=== PATIENT | female | born 1945 | race Caucasian/White ===

== ENCOUNTER 2018-07-11 16:17 | Emergency (ER) | payer OTHER ==
[~2018-07-11] VITALS: Ht 149.9 cm; Wt 38.2 kg
[2018-07-11 16:31] VITALS: Ht 149.9 cm; Wt 38.2 kg
[2018-07-11 19:37] VITALS: BP 151/91
== END 2018-07-11 19:37 | disposition home or self-care (01) ==
LOC: ED 16:17
DX: M71.21 Synovial cyst of popliteal space [Baker], right knee (principal); M25.561 Pain in right knee; I10 Essential (primary) hypertension; F17.210 Nicotine dependence, cigarettes, uncomplicated; Z90.710 Acquired absence of both cervix and uterus
CPT/HCPCS: J1885; Q0092

== ENCOUNTER 2019-05-10 19:19 | Inpatient (IN) | payer OTHER ==
[~2019-05-10] VITALS: Ht 149.9 cm; Wt 37.5 kg
[2019-05-10 21:27] LABS: ALKALINE PHOSPHATASE 216 U/L (46-116); ALT/SGPT 28 U/L (14-59); AST/SGOT 211 U/L (15-37); BILIRUBIN TOTAL 0.7 mg/dL (0.20-1.00); CALCIUM 8.4 mg/dL (8.5-10.1); CARBON DIOXIDE 24.2 mmol/L (21-32); CHLORIDE SERUM 105 mmol/L (98-107); CREATININE SERUM 0.9 mg/dL (0.6-1.0); GLUCOSE SERUM 97 mg/dL (74-106); POTASSIUM SERUM 4.6 mmol/L (3.5-5.1); SODIUM SERUM 141 mmol/L (136-145)
[2019-05-10 21:28] LABS: BASOPHIL % 0.3 % (0-2); PLATELET COUNT 229 x10^3mcL (130-400)
[2019-05-10 21:30] LABS: ALBUMIN 2.9 g/dL (3.4-5.0); TOTAL PROTEIN, SERUM 5.6 g/dL (6.4-8.2)
[2019-05-10 21:34] LABS: RED CELL DISTRIBUTION WIDTH 15.8 % (11.5-14.5)
[2019-05-11] VITALS (7 sets, daily range): BP systolic 84–110; BP diastolic 48–61
[2019-05-11] MEDS ORDERED: TOPROL XL25 MG PO (00:26)
[2019-05-11] MEDS ORDERED: EDARBYCLOR1 TA1 PO (00:26)
[2019-05-11 05:09] LABS: BASOPHIL % 0.4 % (0-2); PLATELET COUNT 176 x10^3mcL (130-400)
[2019-05-11 05:13] LABS: RED CELL DISTRIBUTION WIDTH 15.3 % (11.5-14.5)
[2019-05-11 06:26] LABS: CALCIUM 7.9 mg/dL (8.5-10.1); CARBON DIOXIDE 21.5 mmol/L (21-32); CHLORIDE SERUM 109 mmol/L (98-107); CREATININE SERUM 0.7 mg/dL (0.6-1.0); GLUCOSE SERUM 106 mg/dL (74-106); MAGNESIUM 2.2 mg/dL (1.8-2.4); PHOSPHOROUS 4.8 mg/dL (2.5-4.9); POTASSIUM SERUM 4.4 mmol/L (3.5-5.1); SODIUM SERUM 141 mmol/L (136-145)
[2019-05-12 03:02] VITALS: BP 99/53
[2019-05-12 05:40] LABS: BASOPHIL % 0.2 % (0-2)
[2019-05-12 05:46] LABS: PLATELET COUNT 119 x10^3mcL (130-400); RED CELL DISTRIBUTION WIDTH 15.8 % (11.5-14.5)
[2019-05-12 05:48] LABS: CALCIUM 7.3 mg/dL (8.5-10.1); CARBON DIOXIDE 18.1 mmol/L (21-32); CHLORIDE SERUM 108 mmol/L (98-107); CREATININE SERUM 0.7 mg/dL (0.6-1.0); GLUCOSE SERUM 162 mg/dL (74-106); MAGNESIUM 1.9 mg/dL (1.8-2.4); POTASSIUM SERUM 3.1 mmol/L (3.5-5.1); SODIUM SERUM 140 mmol/L (136-145)
[2019-05-12 07:55] VITALS: Ht 149.9 cm; Wt 37.5 kg
[2019-05-12 08:00] VITALS: BP 99/54
[2019-05-12 12:03] VITALS: BP 101/54
[2019-05-12 16:40] VITALS: BP 98/47
[2019-05-12 20:44] VITALS: BP 103/55
[2019-05-13 05:49] VITALS: BP 101/51
[2019-05-13 07:10] LABS: BASOPHIL % 0.1 % (0-2); CALCIUM 7.7 mg/dL (8.5-10.1); CARBON DIOXIDE 20.2 mmol/L (21-32); CHLORIDE SERUM 110 mmol/L (98-107); CREATININE SERUM 0.6 mg/dL (0.6-1.0); GLUCOSE SERUM 112 mg/dL (74-106); MAGNESIUM 2.2 mg/dL (1.8-2.4); PHOSPHOROUS 2.6 mg/dL (2.5-4.9); POTASSIUM SERUM 3.9 mmol/L (3.5-5.1); SODIUM SERUM 141 mmol/L (136-145)
[2019-05-13 07:24] LABS: PLATELET COUNT 129 x10^3mcL (130-400); RED CELL DISTRIBUTION WIDTH 16.1 % (11.5-14.5)
[2019-05-13 09:29] VITALS: BP 92/48
[2019-05-13 12:09] VITALS: BP 97/55
[2019-05-13 12:37] VITALS: BP 99/53
[2019-05-13 16:50] VITALS: BP 107/60
[2019-05-13 21:34] VITALS: BP 112/61
[2019-05-14 05:36] VITALS: BP 109/57
[2019-05-14 07:06] LABS: BASOPHIL % 0.2 % (0-2); PLATELET COUNT 186 x10^3mcL (130-400)
[2019-05-14 07:10] LABS: RED CELL DISTRIBUTION WIDTH 16.9 % (11.5-14.5)
[2019-05-14 07:13] LABS: CALCIUM 7.8 mg/dL (8.5-10.1); CARBON DIOXIDE 17.7 mmol/L (21-32); CHLORIDE SERUM 110 mmol/L (98-107); CREATININE SERUM 0.6 mg/dL (0.6-1.0); GLUCOSE SERUM 105 mg/dL (74-106); MAGNESIUM 2.2 mg/dL (1.8-2.4); PHOSPHOROUS 2.2 mg/dL (2.5-4.9); POTASSIUM SERUM 4.7 mmol/L (3.5-5.1); SODIUM SERUM 137 mmol/L (136-145)
[2019-05-14 12:22] VITALS: BP 111/55
[2019-05-14 16:34] VITALS: BP 116/64
[2019-05-14 20:14] VITALS: BP 105/55
[2019-05-15 06:02] VITALS: BP 85/49
[2019-05-15 06:22] LABS: BASOPHIL % 0.1 % (0-2); PLATELET COUNT 230 x10^3mcL (130-400)
[2019-05-15 06:35] LABS: CALCIUM 7.8 mg/dL (8.5-10.1); CARBON DIOXIDE 21.7 mmol/L (21-32); CHLORIDE SERUM 107 mmol/L (98-107); CREATININE SERUM 0.5 mg/dL (0.6-1.0); GLUCOSE SERUM 86 mg/dL (74-106); MAGNESIUM 2.2 mg/dL (1.8-2.4); PHOSPHOROUS 2.7 mg/dL (2.5-4.9); POTASSIUM SERUM 4.6 mmol/L (3.5-5.1); SODIUM SERUM 137 mmol/L (136-145)
[2019-05-15 07:23] LABS: RED CELL DISTRIBUTION WIDTH 16.5 % (11.5-14.5)
[2019-05-15 09:36] VITALS: BP 95/61
[2019-05-15 16:45] VITALS: BP 105/55
[2019-05-15 20:37] VITALS: BP 99/54
[2019-05-16 06:10] VITALS: BP 105/63
[2019-05-16 06:14] LABS: BASOPHIL % 0.3 % (0-2)
[2019-05-16 06:35] LABS: CALCIUM 8.1 mg/dL (8.5-10.1); CARBON DIOXIDE 19.7 mmol/L (21-32); CHLORIDE SERUM 104 mmol/L (98-107); CREATININE SERUM 0.5 mg/dL (0.6-1.0); GLUCOSE SERUM 85 mg/dL (74-106); MAGNESIUM 2.3 mg/dL (1.8-2.4); PHOSPHOROUS 3.4 mg/dL (2.5-4.9); POTASSIUM SERUM 4.3 mmol/L (3.5-5.1); SODIUM SERUM 137 mmol/L (136-145)
[2019-05-16 09:20] LABS: RED CELL DISTRIBUTION WIDTH 15.8 % (11.5-14.5)
[2019-05-16 09:36] VITALS: BP 114/63
[2019-05-16 10:18] LABS: PLATELET COUNT 284 x10^3mcL (130-400)
[2019-05-16 10:19] LABS: rbc morphology (normal/abnorm) NORMAL (NORMAL)
[2019-05-16 12:32] VITALS: BP 110/75
[2019-05-16 17:26] VITALS: BP 102/54
[2019-05-16 20:34] VITALS: BP 90/48
[2019-05-17 06:54] LABS: BASOPHIL % 0.3 % (0-2); PLATELET COUNT 375 x10^3mcL (130-400)
[2019-05-17 06:57] LABS: CALCIUM 7.8 mg/dL (8.5-10.1); CARBON DIOXIDE 22.3 mmol/L (21-32); CHLORIDE SERUM 103 mmol/L (98-107); CREATININE SERUM 0.6 mg/dL (0.6-1.0); GLUCOSE SERUM 80 mg/dL (74-106); POTASSIUM SERUM 4.3 mmol/L (3.5-5.1); SODIUM SERUM 136 mmol/L (136-145)
[2019-05-17 07:04] LABS: RED CELL DISTRIBUTION WIDTH 16.2 % (11.5-14.5)
[2019-05-17 09:08] VITALS: BP 106/42
[2019-05-17 16:40] VITALS: BP 111/61
[2019-05-17 21:35] VITALS: BP 92/57
[2019-05-18 06:17] VITALS: BP 99/56
[2019-05-18 07:23] LABS: BASOPHIL % 0.3 % (0-2)
[2019-05-18 07:36] LABS: RED CELL DISTRIBUTION WIDTH 16.2 % (11.5-14.5)
[2019-05-18 07:37] LABS: PLATELET COUNT 510 x10^3mcL (130-400)
[2019-05-18 07:47] LABS: CALCIUM 7.9 mg/dL (8.5-10.1); CARBON DIOXIDE 20.5 mmol/L (21-32); CHLORIDE SERUM 103 mmol/L (98-107); CREATININE SERUM 0.6 mg/dL (0.6-1.0); GLUCOSE SERUM 128 mg/dL (74-106); POTASSIUM SERUM 3.9 mmol/L (3.5-5.1); SODIUM SERUM 135 mmol/L (136-145)
[2019-05-18 09:07] VITALS: BP 103/62
[2019-05-18 12:07] VITALS: BP 99/51
[2019-05-18 17:06] VITALS: BP 95/55
[2019-05-18 20:47] VITALS: BP 90/49
[2019-05-19 05:16] VITALS: BP 101/60
[2019-05-19 06:58] LABS: CALCIUM 7.9 mg/dL (8.5-10.1); CARBON DIOXIDE 22.5 mmol/L (21-32); CHLORIDE SERUM 104 mmol/L (98-107); CREATININE SERUM 0.6 mg/dL (0.6-1.0); GLUCOSE SERUM 76 mg/dL (74-106); POTASSIUM SERUM 4.2 mmol/L (3.5-5.1); SODIUM SERUM 137 mmol/L (136-145)
[2019-05-19 07:44] LABS: BASOPHIL % 0.3 % (0-2)
[2019-05-19 07:50] LABS: PLATELET COUNT 540 x10^3mcL (130-400); RED CELL DISTRIBUTION WIDTH 16.4 % (11.5-14.5)
[2019-05-19 09:25] VITALS: BP 108/66
[2019-05-19] MEDS ORDERED: IND20 PO (10:32)
[2019-05-19] MEDS ORDERED: LANSOPRAZOLE30 M2 PO (10:33)
[2019-05-19] MEDS ORDERED: LEV500 PO (10:55)
[2019-05-19 13:19] VITALS: BP 92/53
[2019-05-19 17:44] VITALS: BP 96/56
[2019-05-19 20:39] VITALS: BP 94/52
[2019-05-20 05:23] VITALS: BP 98/63
[2019-05-20 06:36] LABS: CHLORIDE SERUM 103 mmol/L (98-107); CREATININE SERUM 0.6 mg/dL (0.6-1.0); GLUCOSE SERUM 86 mg/dL (74-106); POTASSIUM SERUM 4.3 mmol/L (3.5-5.1); SODIUM SERUM 138 mmol/L (136-145)
[2019-05-20 07:44] LABS: BASOPHIL % 0.3 % (0-2)
[2019-05-20 07:55] LABS: RED CELL DISTRIBUTION WIDTH 16.6 % (11.5-14.5)
[2019-05-20 09:10] VITALS: BP 104/63
[2019-05-20 09:22] LABS: PLATELET COUNT 596 x10^3mcL (130-400)
[2019-05-20 11:01] VITALS: BP 99/63
== END 2019-05-20 15:15 | disposition home or self-care (01) | DRG 432 ==
LOC: ED 19:19 → IC 23:08 → EDBEDREQ 23:08 → DU 23:08 → IC 05-11 00:36 → DU 05-12 17:43
PROVIDERS: General Practice; Internal Medicine Gastroenterology; Student in an Organized Health Care Education/Training Program; ADMIT Internal Medicine
PROC: 0DB78ZX Excision of Stomach, Pylorus, Via Natural or Artificial Opening Endoscopic, Diagnostic (ICD-10-PCS; principal; 2019-05-10)
PROC: 06L38CZ Occlusion of Esophageal Vein with Extraluminal Device, Via Natural or Artificial Opening Endoscopic (ICD-10-PCS; 2019-05-10)
PROC: 30233N1 Transfusion of Nonautologous Red Blood Cells into Peripheral Vein, Percutaneous Approach (ICD-10-PCS; 2019-05-10)
PROC: 0DJD8ZZ Inspection of Lower Intestinal Tract, Via Natural or Artificial Opening Endoscopic (ICD-10-PCS; 2019-05-13)
PROC: 0DB78ZX Excision of Stomach, Pylorus, Via Natural or Artificial Opening Endoscopic, Diagnostic (ICD-10-PCS; 2019-05-17)
DX: K70.30 Alcoholic cirrhosis of liver without ascites (principal); R57.1 Hypovolemic shock; I85.11 Secondary esophageal varices with bleeding; D62 Acute posthemorrhagic anemia; E44.0 Moderate protein-calorie malnutrition; K76.6 Portal hypertension; Z68.1 Body mass index [BMI] 19.9 or less, adult; M06.9 Rheumatoid arthritis, unspecified; K57.30 Diverticulosis of large intestine without perforation or abscess without bleeding; K64.8 Other hemorrhoids; F17.210 Nicotine dependence, cigarettes, uncomplicated; I10 Essential (primary) hypertension; M19.90 Unspecified osteoarthritis, unspecified site; Z90.710 Acquired absence of both cervix and uterus; I95.9 Hypotension, unspecified; E83.51 Hypocalcemia; R16.0 Hepatomegaly, not elsewhere classified; R13.10 Dysphagia, unspecified
CPT/HCPCS: 43235; 45378; 92526-GN; 92610-GN; 94150; 97116-GP; 97530-GP; C9113; G0378; J0171; J0696; J1200; J1610; J2250; J2310; J2354; J2405; J3010; J3480; J3490; J7030; J7040; J7050; J7060; P9016; Q0092; Q9967

== ENCOUNTER → 2019-07-12 | Outpatient (CLI) | payer OTHER ==
[~2019-07-12] MED LIST: EDARBYCLOR1 TA1 PO; IND20 PO; LANSOPRAZOLE30 M2 PO; LEV500 PO; TOPROL XL25 MG PO
== END | disposition home or self-care (01) ==
LOC: CT 08:32
PROC: BW201ZZ Computerized Tomography (CT Scan) of Abdomen using Low Osmolar Contrast (ICD-10-PCS; principal; 2019-07-12)
DX: R14.0 Abdominal distension (gaseous) (principal); R16.0 Hepatomegaly, not elsewhere classified
CPT/HCPCS: Q9967